=== PATIENT | male | born 1950 | race Caucasian/White ===

== ENCOUNTER 2018-09-27 09:49 | Day surgery (SDC) | payer MEDICARE, OTHER, SELFPAY ==
[2018-09-24 10:35] VITALS: BMI 27.1
[2018-09-27] VITALS (28 sets, daily range): BP systolic 118–159; BP diastolic 28–87; PULSE 67–90; RESP 14–21; TEMP 36.3–36.9; O2SAT 91–97; BMI 26.3
--- NOTE | 2018-09-27 13:00 | EKG12_ITS ---
Test Reason : POST PCI Blood Pressure : / mmHG Vent. Rate : 069 BPM Atrial Rate : 069 BPM P-R Int : 184 ms QRS Dur : 102 ms QT Int : 410 ms P-R-T Axes : 044 000 026 degrees QTc Int : 439 ms Normal sinus rhythm Normal ECG Confirmed by SOPHIE BROCK, REYES ([id number]), publishing editor ROBERTO SKY ([id number] on 09/30/2018 11:04:33 AM Referred By: Irving Harkins Confirmed By:REYES BARRIOS MD
[2018-09-27] MEDS: 0.9% Normal Saline 1,000 ML 150 ML IV (13:59)
--- NOTE | 2018-09-27 14:09 | CRPHASE1 ---
Patient Data/Charges Phase II Referral:: [facility] Start Phase II:: FOLLOWING OFFICE VISIT WITH FARM SPECIALIST Risk Factors/Lifestyle Smoking Status: Never smoker Hx Hypertension: Yes Hx Dyslipidemia: Yes Hx Obesity: No - BMI 27.4 Risk Factor for Sedentary Lifestyle: Moderate Risk Phase I Education Given On:: [place], Nutrition, Antiplatelet medication Issues Affecting Care:: None Knowledge of Condition:: Yes Learning Preferences: Verbal, Written Hospital Course Presenting Symptoms:: CHEST TIGHTNESS / ABNORMAL STRESS Pain Description: Tightness Medical/Surgical History [place]:: No Diabetes:: No Hypertension:: Yes Discharge/Home/Social Eval Discharge Disposition: Home
--- NOTE | 2018-09-27 14:13 | CRPHASE1_ITS ---
Patient Data/Charges Phase II Referral:: [facility] Start Phase II:: FOLLOWING OFFICE VISIT WITH RANGE EXAMINER Risk Factors/Lifestyle Smoking Status: Never smoker Hx Hypertension: Yes Hx Dyslipidemia: Yes Hx Obesity: No - BMI 27.4 Risk Factor for Sedentary Lifestyle: Moderate Risk Phase I Education Given On:: [place], Nutrition, Antiplatelet medication Issues Affecting Care:: None Knowledge of Condition:: Yes Learning Preferences: Verbal, Written Hospital Course Presenting Symptoms:: CHEST TIGHTNESS / ABNORMAL STRESS Pain Description: Tightness Medical/Surgical History [place]:: No Diabetes:: No Hypertension:: Yes Discharge/Home/Social Eval Discharge Disposition: Home
--- NOTE | 2018-09-27 14:16 | CRPH1.INSTRU ---
General Education CAD and cardiac anatomy and function:: Patient communicates acknowledgment Explanation of diagnoses and procedures:: Patient communicates acknowledgment Sign/Symptoms of WI:: Patient communicates acknowledgment Antiplatelet therapy: Patient communicates acknowledgment Proper use of NTG-SL: Patient communicates acknowledgment Emergency procedures and activation of EMS: Patient communicates acknowledgment Compliance of all prescribed medications: Patient communicates acknowledgment Smoking Patient Nicotine/Smoking Risk Factors Are:: Never smoked Dyslipidemia Patient Dyslipidemia Risk Factors Are:: Total Cholesterol, Triglycerides, HDL, LDL Recommendations Include:: Lipid profile not available, Reviewed NCEP/ATP guidelines, Therapeutic Lifestyle Change dietary guidelines Dyslipidemia Response Code:: Patient communicates acknowledgment Overweight/Obesity Patient Overweight/Obesity Risk Factors Are:: Overweight = 26-29 Recommendations Include:: Weight loss of 5-10%, Reduced calorie diet, Exercise 5-7 times/week Overweight/Obesity:: Patient communicates acknowledgment Hypertension Patient Hypertension Risk Factors Are:: No documented hx of HTN Recommendations Include:: Maintain BP <130/85, DASH dietary guidelines, Decrease/maintain normal body weight, Moderation of ETOH Hypertension:: Patient communicates acknowledgment Diabetes Patient Diabetes Risk Factors Are:: No documented hx of diabetes Metabolic Syndrome Recommendations Include:: Does not meet criteria Sedentary Patient Sedentary Risk Factors Are:: Lack of regular exercise Recommendations Include:: Aerobic exercise 5-7 times/week for 20-30 minutes continuously, Benefits of regular exercise, Discussed home walking program, Monitored Outpatient Cardiac Rehab Sedentary Response Code:: Patient communicates acknowledgment Stress Recommendations Include:: Identification of stressors, and assessment of coping skills, Stress management techniques Stress Response Code:: Patient communicates acknowledgment
--- NOTE | 2018-09-27 14:19 | CL.D_ITS ---
Patient Name: LUIS LOMELI Study Date: 09/27/2018 Performing: Irving Harkins MD Ht: 73 inches 185 cm : 1950 Wt: 205.3 lbs 93 kg Age: 68 Gender: male BSA: 2.17 PROCEDURE(S) PERFORMED WM79-EHN/COR/LV KS11-RNI W OR WO PTCA, SINGLE CORONARY ARTERY CLINICAL PROFILE AND INDICATIONS Heart Failure: None Stress/Imaging Stress Test w/SPECT MPI: Yes Result: Positive High RiskStress Test with SPECT MPI: Positive High Risk Angina Classification Anginal Classification w/in 2 Weeks: CCS II CAD Presentations: Stable angina. CONCLUSIONS Severe disease involving a large dominant right coronary artery with proximal 80% stenosis. Mild to moderate diffuse disease involving the left anterior descending artery and circumflex artery but with no high-grade stenosis. Preserved ejection fraction noted. RECOMMENDATIONS Referred for immediate PCI DESCRIPTION OF PROCEDURE The patient arrived to the procedure lab. The risks and benefits of the procedure as well as a full d escription of our services here and current unavailability of surgical backup were fully explained to the patient and/or their significant other prior to the catheterization. The Timeout was completed, verifying the correct patient and procedure. The patient's procedural site was prepped and draped in the usual fashion. Local anesthetic was given subcutaneously to right radial region with Lidocaine 2% . Using a modified Seldinger technique, arterial access was obtained via the right radial artery, a 6 Fr sheath was inserted. Left Coronary Artery selective angiography was performed in multiple views u sing a 5 Fr. 4.0 Orgas catheter. Right Coronary Artery selective angiography was then performed in mu ltiple views using a 5 Fr. 4.0 Orgas catheter. Left Ventriculography was performed in CHUN projection using a 5 Fr. Pigtail catheter. LV to AO pullback pressures were then recorded.The arterial sheath was pulled and a TR Band was applied for hemostasis CORONARY ANGIOGRAPHY DOMINANCE: Right Dominant LEFT HEART ASSESSMENT Left Ventricular Ejection Fraction: by LV Gram 60 % Normal LV wall motion Normal Left Ventricular systolic function LEFT MAIN: Angiographically normal LEFT ANTERIOR DECENDING ARTERY: PROX LAD: Mild luminal irregularities less than 30% MID LAD: Mild luminal irregularities less than 30% DISTAL LAD: Mild luminal irregularities CIRCUMFLEX ARTERY: MID CIRC: Moderate luminal irregularities up to 50% RIGHT CORONARY ARTERY: PROX RCA: 80 % Stenosis COMPLICATIONS No Complications PROCEDURE MEDICATIONS Fentanyl 50 mcg IV Versed 1 mg IV Versed 1 mg IV Fentanyl 25 mcg IV Versed 1 mg IV Oxygen: 2 L/min via nasal cannula Heparin 8000 unit(s) IV 09/27/2018 12:15:38 Heparin 4000 unit(s) IV 09/27/2018 12:22:17 Heparin 1000 unit(s) IV 09/27/2018 13:00:37 Nitro 200 mcg IC 09/27/2018 12:47:23 Plavix 300 mg PO 09/27/2018 13:03:41 SUMMARY OF HEMODYNAMIC DATA Time AIR REST ECG 10:18:40 AO 120/62 (86) SA 11:40:54 LV 114/0, 9 11:49:35 LV 126/1, 10 11:49:42 LV 126/0, 12 11:51:05 LVp 125/0, 12 11:51:09 AOp 127/61 (91) 11:51:14 RM AIR REST 13:17:06 Signed By Irving Harkins MD On 09/27/2018 14:18:46 Irving Harkins MD
--- NOTE | 2018-09-27 14:28 | CL.I_ITS ---
Patient Name: LUIS LOMELI Study Date: 09/27/2018 Performing: Abbe Vitale MD Ht: 73 inches 185 cm : 1950 Wt: 205.3 lbs 93 kg Age: 68 Gender: male BSA: 2.17 PROCEDURE(S) PERFORMED BT58-IDS W OR WO PTCA, SINGLE CORONARY ARTERY CLINICAL PROFILE AND CO-MORBIDITIES Heart Failure: None Stress/Imaging Stress Test w/SPECT MPI: Yes Result: Positive High Risk Stress Test with SPECT MPI : Positive High Risk Angina Classification Anginal Classification w/in 2 Weeks: CCS II CAD Presentations: Stable angina. CONCLUSIONS Successful PTCA/SEAN distal RCA using Resolute Integrity 3.5x12 mm RECOMMENDATIONS ASA Indefinitley Plavix for at least 12 months Follow up with Dr. Harkins INTERVENTION INFORMATION LESION SITE: RCA (Distal) Lesion Complexity: Non-High/Non-C Pre Stenosis: 70 % Pre intervention ZHENG flow: 3 PROCEDURE: Drug Eluting Stent with pre and post dilatation Post Stenosis: 0 % Post intervention ZHENG flow: 3 Lesion Devices: Cordis 6 Fr AL.75 100cm Guide Catheter Terumo .014 Runthrough Extra Floppy 180cm straight Petey Sci .035 180cm str. Magic wire Petey Sci EMERGE MR 3.00x12 BALLOON Medtronic Resolute RX SEAN 3.5x12 Petey Sci NC EMERGE MR 3.50x12 BALLOON LESION SITE: RCA (Mid) Lesion Complexity: High/C Pre Stenosis: 80 % Pre intervention ZHENG flow: 3 PROCEDURE: Drug Eluting Stent with pre and post dilatation Post Stenosis: 0 % Post intervention ZHENG flow: 3 Lesion Devices: Cordis 6 Fr AL.75 100cm Guide Catheter Terumo .014 Runthrough Extra Floppy 180cm straight Petey Sci .035 180cm str. Magic wire Petey Sci EMERGE MR 3.00x12 BALLOON Medtronic Resolute RX SEAN 3.5x26 Petey Sci NC EMERGE MR 3.50x12 BALLOON Petey Sci NC EMERGE MR 4.00x08 BALLOON COMPLICATIONS No Complications PROCEDURE MEDICATIONS Fentanyl 50 mcg IV Versed 1 mg IV Versed 1 mg IV Fentanyl 25 mcg IV Versed 1 mg IV Oxygen: 2 L/min via nasal cannula Heparin 8000 unit(s) IV 09/27/2018 12:15:38 Heparin 4000 unit(s) IV 09/27/2018 12:22:17 Heparin 1000 unit(s) IV 09/27/2018 13:00:37 Nitro 200 mcg IC 09/27/2018 12:47:23 Plavix 300 mg PO 09/27/2018 13:03:41 SUMMARY OF HEMODYNAMIC DATA Time AIR REST ECG 10:18:40 AO 120/62 (86) SA 11:40:54 LV 114/0, 9 11:49:35 LV 126/1, 10 11:49:42 LV 126/0, 12 11:51:05 LVp 125/0, 12 11:51:09 AOp 127/61 (91) 11:51:14 RM AIR REST 13:17:06 Signed By Abbe Vitale MD On 09/27/2018 14:27:59 Abbe Vitale MD
[2018-09-27 14:41] LABS: ACT Activated Clotting Time 246 sec (74-137)
[2018-09-27 14:41] LABS: ACT Activated Clotting Time 186 sec (74-137)
[2018-09-27] MEDS: Metoprolol Tartrate 25 MG Tablet 12.5 MG PO (21:17)
[2018-09-28] VITALS (13 sets, daily range): BP systolic 122–153; BP diastolic 59–80; PULSE 64–76; RESP 13–20; TEMP 36.6–37; O2SAT 92–99
[2018-09-28 04:18] LABS: Hematocrit 40.9 % (40-54); Mean Corp Hgb Conc 34.2 g/gl (32-36); Mean Corpuscular Hgb 30.6 pg (27.0-32.0); Mean Corpuscular Volume 89.5 fL (80-94); Mean Platelet Vol. 10.1 fl (6.2-12.0); Platelet Count 176 K/mm3 (150-450); RBC Distribution Width SD 42.4 fl (35.1-43.9); Red Blood Count 4.57 M/mm3 (4.6-6.2); White Blood Count 8.1 K/mm3 (4.4-11.0)
[2018-09-28 04:20] LABS: Scan Indicated on CBC? Y/N NO
[2018-09-28 04:38] LABS: Anion Gap 9 (5-15); BUN 15 mg/dL (7-18); BUN/Creat Ratio 16.5 RATIO (10-20); Chloride 108 mmol/L (98-107); Creatinine, Serum 0.91 mg/dL (0.70-1.30); EST Glomerular Filtration Rate 88 mL/min (>60); Est Glom Filt Rate - Afr Amer 106 mL/min (>60); Estimated Creatinine Clearance 85.36 ml/min; Glucose 101 mg/dL (74-106); Potassium 4.1 mmol/L (3.5-5.1); Sodium Level 142 mmol/L (136-145)
--- NOTE | 2018-09-28 06:35 | PN.CARD_ITS ---
Subjectve: Patient seen and evaluated. Appears to be doing well. Has no cardiac complaints. Objective: Vital Signs Temp Pulse Resp BP Pulse Ox 98 F 64 18 124/68 H 93 09/28/18 05:00 09/28/18 06:00 09/28/18 06:00 09/28/18 06:00 09/28/18 06:00 Oxygen Delivery Method Room Air Weight: 200 lb 9.93 oz Body Mass Index (BMI) 26.3 Intake and Output for Last 24 Hours 09/26/18 09/27/18 09/28/18 23:59 23:59 23:59 Intake Total 1391 / 1391 120 / 120 Output Total 2049 / 2049 275 / 275 Balance -659 / -659 -155 / -155 General: Awake, Alert, Oriented x 3 HEENT: PERRL, EOMI, Sclera Non Icteric Neck: Supple, Good ROM, No Lymph Node Enlargement Lungs: Clear to auscultation Cardiovascular: Regular Rhythm, Normal S1, Normal S2, No Murmurs, No Rubs, No Gallops Vascular: No Carotid Bruits, Normal Femoral Pulses, Normal Radial Pulses, Normal Dorsalis Pedal Pulse, Normal Posterior Tibial Pulses Abdomen: Bowel Sounds Present, Soft, Non Tender, No HSM, No Organomegaly Extremities: No Cyanosis, No Clubbing, No edema Skin: No Rashes Lymphatic: No Lymph Node Enlargement Neurological: No Focal Motor or Sensory Deficit Psych/Mental Status: Appropriate 09/28/18 04:10: WBC 8.1, RBC 4.57 L, Hgb 14.0, Hct 40.9, MCV 89.5, MCH 30.6, MCHC 34.2, RDW 13.0, RDW Differential 42.4, Plt Count 176, MPV 10.1 09/28/18 04:10: Sodium 142, Potassium 4.1, Chloride 108 H, Carbon Dioxide 25.0, Anion Gap 9, BUN 15, Creatinine 0.91, Est GFR (MDRD) Af Amer 106, Est GFR (MDRD) Non-Af 88, BUN/Creatinine Ratio 16.5, Glucose 101, Calcium 9.0 Rhythm: EKG: ECHO: Stress Test: Cardiac Cath: PCI: CT Surgery: Holter monitor: EPS: PPM: CXR: Chest CT Scan: Medical Necessity - Tobacco Use Smoking Status: Never smoker Tobacco Use: Non-smoker Assessment/Plan 1. Coronary artery disease * Patient is status post angioplasty and stenting of the proximal to mid right coronary artery with a 3.5 mm drug-eluting stent. Patient was pain-free overnight with no EKG changes. Hemoglobin and creatinine appears to be stable. * Patient's overall prognosis discussed and all questions answered appropriately. * Be discharged for outpatient follow-up with his primary instrumentation and controls designer. * * Thank you for allowing me to participate in the care of this patient. Please don't hesitate to call if any issues arise
--- NOTE | 2018-09-28 06:37 | DCINST_ITS ---
Discharge Diet: Low fat/ Low Cholesterol Discharge Activity: Return to Normal Activity Call your doctor if your incision/area has: Increased Pain/ Swelling, Increased Redness, Foul Smelling Discharge, Swelling at the incision site Call your doctor if you observe: Fever of 101 or Higher Additional Dressing/Incision Instructions:: Keep the dressing (bandage) on until the next morning. You may then shower, but do not take a tub bath for 5 days after your test. It is normal to have some tenderness and discomfort at the puncture site. Sometimes bruising also occurs. However, if pain, numbness, or coldness occurs below the puncture site (in your leg, toes, arms or fingers) call your doctor at once. You may have a small, marble sized knot at the puncture site. This is normal. Do not rub it. It will go away in 4-6 weeks. Bleeding can occur from the area where the puncture was done. Blood may spurt or drip from the site. If blood spurts, apply pressure right away to stop bleeding and call 911. Although rare, bleeding into the tissue (hematoma) can also occur. If this happens, a large, firm area goose egg under the skin will appear. If any of these occur, lie down as flat as you can and have someone apply firm pressure to the cath site with a gauze pad or a clean washcloth for 10-15 minutes. Call 911 or go to the Emergency Department. Allergies/Adverse Reactions: Allergies No Known Allergies Allergy (Verified 10/12/16 07:05) Medications to take at Discharge Simvastatin [Zocor] 20 mg PO QHS 10/12/16 clopidogrel 75 mg tablet 75 mg PO DAILY #30 tab 09/10/18 Amlodipine [Norvasc] 5 mg PO DAILY 09/24/18 Aspirin E.C. [Ecotrin] 81 mg PO DAILY@0800 09/24/18 Cholecalciferol (VIT D3) [Vitamin D] 1,000 unit PO DAILY 09/24/18 Hydrochlorothiazide [Hctz] 25 mg PO DAILY 09/24/18 Nitroglycerin [Nitrostat] 0.4 mg SUBLINGUAL Q5M PRN 09/24/18 Saw [place] 500 mg PO UD 09/24/18 Primary Care Physician: Mike Campos MD [Primary Care Provider] - Test Results: Test results from this visit will be discussed in further detail at your follow- up appointment, if applicable. Please Follow Up With: dr jacobson as previously scheduled. Proposed Discharge Date: 09/28/18 Cardiac Rehabilitation Info Cardiac Rehabilitation Program Information: Cardiac Rehabilitation is important for patients like you who are recovering from a heart problem. Cardiac rehabilitation programs are recognized as integral to the continued care of the patient with coronary heart disease. The cardiac rehabilitation program is designed to optimize a patient's physical, psychological, and social functioning. Health customer care representative work in cardiac rehabilitation programs and assist you with getting the treatments you need to get stronger and healthier - like exercise, healthy eating habits, and medications. Cardiac rehabilitation has been show to help people with heart problems live longer and have better life enjoyment than people who do not go to cardiac rehabilitation. Please contact the Cardiac Rehabilitation Program at [facility] at in two weeks if you have not heard from them.
[2018-09-28] MEDS: Aspirin E.C. 81 MG Tablet PO (09:01)
[2018-09-28] MEDS: Clopidogrel Bisulfate 75 MG Tablet PO (09:02)
[2018-09-28] MEDS: Metoprolol Tartrate 25 MG Tablet 12.5 MG PO (09:02)
--- NOTE | 2018-09-28 10:00 | EKG12_ITS ---
Test Reason : AM EKG Blood Pressure : / mmHG Vent. Rate : 065 BPM Atrial Rate : 065 BPM P-R Int : 192 ms QRS Dur : 094 ms QT Int : 408 ms P-R-T Axes : 050 000 058 degrees QTc Int : 424 ms Normal sinus rhythm Normal ECG Confirmed by SOPHIE BROCK, REYES ([id number]), editor city ROBERTO SKY ([id number]) on 09/30/2018 11:03:21 AM Referred By: Irving Harkins Confirmed By:REYES BARRIOS MD
== END 2018-09-28 09:45 | disposition home or self-care (01) ==
LOC: CLSP 09:50 → ICU 13:40
PROVIDERS: Internal Medicine Cardiovascular Disease; Family Provider Internal Medicine; PCP Internal Medicine; Referring Provider Internal Medicine Cardiovascular Disease; Visit Provider Internal Medicine Cardiovascular Disease
DX: R94.39 Abnormal result of other cardiovascular function study (principal); I25.10 Atherosclerotic heart disease of native coronary artery without angina pectoris; E03.8 Other specified hypothyroidism; E78.5 Hyperlipidemia, unspecified; E80.4 Gilbert syndrome; I10 Essential (primary) hypertension
CPT/HCPCS: 80048; 85027; 85347; 92928; 93005; 93458; 99152; 99153; J7030; J7040; Q9967; C1725; C1769; C1874; C1887; C1894; C9600

== ENCOUNTER 2018-10-14 03:29 | Emergency (ER) | payer MEDICARE, OTHER, SELFPAY ==
[2018-09-27 13:45] VITALS: BMI 26.3
[2018-10-14 03:31] VITALS: BP 133/66; PULSE 72; RESP 16; TEMP 36.4; O2SAT 96; BMI 26.9
--- NOTE | 2018-10-14 03:43 | EKG12_ITS ---
Test Reason : SYNCOPE Blood Pressure : / mmHG Vent. Rate : 074 BPM Atrial Rate : 074 BPM P-R Int : 200 ms QRS Dur : 098 ms QT Int : 428 ms P-R-T Axes : 037 -08 025 degrees QTc Int : 475 ms Normal sinus rhythm Nonspecific ST abnormality Abnormal ECG Confirmed by SOPHIE BROCK, REYES ([id number]), rewrite editor ROBERTO SKY ([id number]) on 10/19/2018 2:45:08 PM Referred By: JASPREET Confirmed By:REYES BARRIOS MD
--- NOTE | 2018-10-14 03:43 | RAD_ITS ---
STUDY: X-RAY CHEST REASON FOR EXAM: Male, 68 years old. Syncope. Cardiac stent placed 2 weeks ago. TECHNIQUE: AP portable chest. COMPARISON: None. FINDINGS: The lungs are clear and expanded. There is no demonstrated pleural abnormality. Normal size heart. Normal mediastinum and demi. Normal visualized pulmonary arteries. Normal visualized aortic arch and descending thoracic aorta. Normal visualized thoracic spine. Normal visualized ribs, clavicles, and shoulders. There is no demonstrated abnormality of the visualized soft tissue structures of the upper abdomen. RAD/Chest 1 View (Portable) IMPRESSION: No acute cardiopulmonary disease. Electronically Signed: Pee Paez MD at 4:24 EST , Service support ,
[2018-10-14 03:46] VITALS: BP 123/70; BP 139/78; BP 145/75; PULSE 69; PULSE 72; PULSE 80
[2018-10-14 03:51] LABS: Absolute Lymphocyte Count 1.96 X10^3/ul (0.83-4.51); Absolute Neutrophil Count 2.8 X10^3/uL (2.0-7.7); Basophil# 0.07 X10^3/uL; Basophil% 1.1 % (0-1); Eosinophil# 0.44 X10^3/uL; Eosinophils% 7.2 % (0-5); Hematocrit 42.6 % (40-54); Hemoglobin 14.5 g/dl (13.0-16.5); Lymphocyte # 1.96 X10^3/ul (4.0); Lymphocyte % 32.1 % (19-41); Mean Corpuscular Hgb 30.1 pg (27.0-32.0); Mean Corpuscular Volume 88.4 fL (80-94); Mean Platelet Vol. 9.6 fl (6.2-12.0); Monocyte# 0.79 X10^3/uL; Neutrophil # 2.84 X10^3/uL (2.7-7.7); Neutrophil % 46.6 % (47-70); Platelet Count 209 K/mm3 (150-450); RBC Distribution Width CV 12.7 % (11.6-14.6); RBC Distribution Width SD 40.4 fl (35.1-43.9); Red Blood Count 4.82 M/mm3 (4.6-6.2); White Blood Count 6.1 K/mm3 (4.4-11.0)
[2018-10-14 03:53] LABS: POSITIVE COUNT NO; POSITIVE DIFFERENTIAL NO; POSITIVE MORPHOLOGY NO
[2018-10-14 04:08] LABS: Anion Gap 7 (5-15); BUN 16 mg/dL (7-18); BUN/Creat Ratio 13.9 RATIO (10-20); Calcium,Total 9.1 mg/dL (8.5-10.1); Chloride 103 mmol/L (98-107); Creatinine, Serum 1.15 mg/dL (0.70-1.30); EST Glomerular Filtration Rate 67 mL/min (>60); Est Glom Filt Rate - Afr Amer 81 mL/min (>60); Estimated Creatinine Clearance 67.55 ml/min; Glucose 118 mg/dL (74-106); Potassium 3.3 mmol/L (3.5-5.1); Sodium Level 141 mmol/L (136-145)
[2018-10-14 04:34] VITALS: BP 127/70; PULSE 74; RESP 16; O2SAT 95
--- NOTE | 2018-10-14 04:53 | EKG12_ITS ---
Test Reason : REPEAT Blood Pressure : / mmHG Vent. Rate : 075 BPM Atrial Rate : 075 BPM P-R Int : 184 ms QRS Dur : 098 ms QT Int : 406 ms P-R-T Axes : 051 001 034 degrees QTc Int : 453 ms Normal sinus rhythm Nonspecific ST abnormality Abnormal ECG Confirmed by SOPHIE BROCK, REYES ([id number]), drug discovery informatics specialist ROBERTO SKY ([id number]) on 10/19/2018 2:45:17 PM Referred By: JASPREET Confirmed By:REYES BARRIOS MD
[2018-10-14 04:54] VITALS: BP 126/68; PULSE 71; RESP 18; O2SAT 92
[2018-10-14 05:02] LABS: Magnesium 2.4 mg/dL (1.6-2.6)
--- NOTE | 2018-10-14 05:05 | ED.VISSUMM ---
- ER Visit Summary Date of Service: 10/14/18 Chief Complaint: Syncope History of Present Illness: The patient is a [address] Jay Lopez and Dr. Campos. Patient reports that he had gotten up from bed and been standing for approximately 2 minutes urinating when he began feeling lightheaded. States that he was diaphoretic as well. He denies any chest pain, palpitations, shortness of breath. He tried to get back to his bed, but had a syncopal episode. He denies any injuries from this. No neck, back, shoulder, wrist, or hip pain. Patient had a heart catheterization September 27 and had 2 stents placed in his right coronary artery. He reports he has been doing well since that time. Review of systems: General: No fever, chills, cold sweats. Cardiovascular: No chest pain, palpitations. Respiratory: No cough, shortness of breath, dyspnea on exertion. Gastrointestinal: No abdominal pain, nausea, vomiting, diarrhea, melena, or hematochezia. Genitourinary: No dysuria, frequency, hematuria. Skin: No rash. Neuro: No headache, numbness, weakness. Physical Examination: Vitals: Stable. Afebrile. General: Well-nourished and well-developed. Head: Normocephalic atraumatic. Neck: Supple, no lymphadenopathy. No JVD. Nontender. Cardiovascular: Regular rate and rhythm. No murmurs. Respiratory: No respiratory distress. Clear to auscultation bilaterally. Abdominal: Soft, nontender, nondistended, normal bowel sounds. No guarding, rebound, or peritoneal signs. Back: Nontender. Extremities: Nontender, no edema. Skin: Normal color, no rash. Neurologic: Alert and oriented ?3. Cranial nerves II through XII are intact. Normal strength and sensation. Psych: Normal affect. Test Results: EKG is sinus at 74 with no acute changes. His QTC is 475. This is the only change from his EKG earlier this month. At that time his QTC was 424 and 439. CBC is remarkable for segmented neutrophils 47, monocytes 13, eosinophils of 7. Chem-7 is more for potassium 3.3 (slight hemolysis), glucose 118, creatinine 1.15. His creatinine on September 28 was 0.91. Troponin is negative. Chest x-ray is normal. Repeat EKG shows no acute changes. His QTC is 453. Repeat troponin is negative. Magnesium is 2.4. Emergency Department Course and Treatment: Patient had negative acetic vital signs. He was treated with a liter normal saline. He was given 40 mEq of potassium p.o. He is resting comfortably. Patient reports that he was placed on hydrochlorothiazide for lower extremity edema he got after being placed on Norvasc. Treatment Plan: Clinically I do not think the patient had a syncopal episode due to a dysrhythmia. He denies any palpitations or chest pain. He has had no ectopy in the 4 hours that has been observed in the emergency department. Patient was discussed with Dr. Gillespie. He will be discharged on K-Dur. Instructed to follow-up Dr. Gillespie as soon as possible. Speak with him about the possibility of changing from Norvasc and the hydrochlorothiazide that was added for peripheral edema to a single agent. Return to the emergency department for any worsening symptoms. Disposition: To home in improved and stable condition. Impression: 1. Syncope. 2. Mild hypokalemia on hydrochlorothiazide. 3. Prolonged QTC. This note was generated with [employer] ([employer])ation software. It may contain incorrect words, spelling, and punctuation that were not noted in review of the chart prior to signing ED Disposition - Plan for ED Patient: Chief Complaint: Syncope Instructions: ED Fainting Unkn Cause Prescriptions: Potassium Chloride [K-Dur] 40 meq PO DAILY #10 tablet Referrals: Jay Lopez MD [STAFF PHYSICIAN] - As soon as possible
[2018-10-14 06:06] VITALS: BP 139/75; PULSE 79; RESP 17; O2SAT 95
[2018-10-14 07:29] VITALS: BP 156/72; PULSE 61; RESP 15; O2SAT 99
== END 2018-10-14 07:30 | disposition home or self-care (01) ==
LOC: ED 04:07
PROVIDERS: Emergency Provider Emergency Medicine; Family Provider Internal Medicine; PCP Internal Medicine
DX: R55 Syncope and collapse (principal); E87.6 Hypokalemia; R60.0 Localized edema; I25.10 Atherosclerotic heart disease of native coronary artery without angina pectoris; I10 Essential (primary) hypertension; E78.00 Pure hypercholesterolemia, unspecified; Z95.5 Presence of coronary angioplasty implant and graft
CPT/HCPCS: 71045; 80048; 83735; 84484; 85025; 93005; 96360; 96361; 99285; J7030; J7040; A4216

== ENCOUNTER 2019-07-31 11:25 | Emergency (ER) | payer MEDICARE, OTHER, SELFPAY ==
[2019-07-31 11:26] VITALS: BP 154/72; PULSE 87; RESP 17; TEMP 36.2; O2SAT 96; BMI 24.6
--- NOTE | 2019-07-31 11:41 | CT_ITS ---
STUDY: CT BRAIN WITHOUT CONTRAST REASON FOR EXAM: Male, 69 years old. Dizziness. RADIATION DOSAGE (If Supplied By Facility): CTDIvol = ( 44.99 ) mGy, DLP = ( 779.24 ) mGycm TECHNIQUE: Transaxial CT imaging of the brain was performed without administration of intravenous contrast material. Individualized dose optimization techniques were used for this CT. COMPARISON: No relevant priors. FINDINGS: Normal soft tissue structures. Normal calvarium. The ventricles are slightly prominent likely due to central atrophy. Communicating hydrocephalus is less likely. Normal white matter tracts of the cerebral hemispheres. Normal basal ganglia and thalami. Normal brainstem. Normal cerebellum. There is no intracranial hemorrhage. There are no findings of an acute ischemic infarction. Normal visualized paranasal sinuses. CT/Brain/Head without Contrast IMPRESSION: No acute intracranial process. Electronically Signed: Urban Abbott MD at 12:51 EST Tel , Service support ,
--- NOTE | 2019-07-31 11:42 | EKG12_ITS ---
Test Reason : DIZZINESS Blood Pressure : / mmHG Vent. Rate : 081 BPM Atrial Rate : 081 BPM P-R Int : 186 ms QRS Dur : 098 ms QT Int : 384 ms P-R-T Axes : 049 -07 052 degrees QTc Int : 446 ms Normal sinus rhythm Normal ECG Confirmed by GIOVANNI BROCK, FRANCESCO ([id number]), makeup editor PETROS SAMUEL ([id number]) on 08/02/2019 2:25:50 PM Referred By: LUI Confirmed By:FRANCESCO DAVILA MD
[2019-07-31 12:03] LABS: Absolute Lymphocyte Count 1.58 X10^3/uL (0.83-4.51); Absolute Neutrophil Count 3.2 X10^3/uL (2.0-7.7); Basophil# 0.08 X10^3/uL; Basophil% 1.4 % (0-1); Eosinophil# 0.35 X10^3/uL; Eosinophils% 5.9 % (0-5); Hematocrit 39.6 % (40-54); Hemoglobin 13.4 g/dL (13.0-16.5); Lymphocyte # 1.58 X10^3/ul (4.0); Lymphocyte % 26.8 % (19-41); Mean Corp Hgb Conc 33.8 g/dL (32-36); Mean Corpuscular Hgb 30.9 pg (27.0-32.0); Mean Corpuscular Volume 91.5 fL (80-94); Mean Platelet Vol. 9.4 fl (6.2-12.0); Monocyte# 0.68 X10^3/uL; Monocyte% 11.5 % (0-10); NRBC Flagged by Analyzer 0 % (0-5); Neutrophil # 3.19 X10^3/uL (2.7-7.7); Neutrophil % 54.1 % (47-70); Platelet Count 185 K/mm3 (150-450); RBC Distribution Width CV 12.3 % (11.6-14.6); RBC Distribution Width SD 40.7 fl (35.1-43.9); Red Blood Count 4.33 M/mm3 (4.6-6.2); White Blood Count 5.9 K/mm3 (4.4-11.0)
[2019-07-31 12:21] LABS: Anion Gap 6 (5-15); BUN 16 mg/dL (7-18); BUN/Creat Ratio 15.5 RATIO (10-20); Calcium,Total 9.1 mg/dL (8.5-10.1); Chloride 105 mmol/L (98-107); Creatinine, Serum 1.03 mg/dL (0.70-1.30); EST Glomerular Filtration Rate 76 mL/min (>60); Est Glom Filt Rate - Afr Amer 92 mL/min (>60); Estimated Creatinine Clearance 74.34 ml/min; Glucose 107 mg/dL (74-106); Potassium 3.8 mmol/L (3.5-5.1); Sodium Level 139 mmol/L (136-145)
[2019-07-31] MEDS: 0.9% Normal Saline 1,000 ML 150 ML IV (12:39)
[2019-07-31 12:41] VITALS: BP 107/66; BP 112/70; BP 119/68; PULSE 77; PULSE 78
--- NOTE | 2019-07-31 13:09 | ED.DCSUM_ITS ---
- ER Visit Summary Date of Service: 07/31/19 Chief Complaint: [Dizziness] History of Present Illness: The patient is a 69 M [presents to the emergency department complaint of dizziness started this morning around 10:45 AM. Patient states that he was working out on the leg exercise machine after running on a treadmill for about a half an hour. When he got up off of the leg machine he felt lightheaded and off-balance. He denied any vertiginous symptoms. Patient denies any chest pain or shortness of breath. Patient also states that he is had a chronic cough and at times now when he coughs over the last several days has had a lot of pressure in the front of his head. Patient also had some pressure in the front of his head with bending over today. Patient has history of hypertension and high cholesterol. Patient has coronary artery disease with prior cardiac stents placed in 2019. Patient denies any fever or recent illness otherwise. He denies any exertional symptoms such as chest pain or shortness of breath with activity.] Patient denies any blood in the stool or black tarry stool. Physical Examination: [HEENT-PERRLA, EOMI. Cranial nerves II through XII grossly intact. TMs clear. Mucous membranes moist. No adenopathy. Cardiovascular-regular rate and rhythm without murmur or ectopy Lungs-clear to auscultation, chest wall stable without crepitus or subcu emphysema Abdomen-normoactive bowel sounds, soft, nontender, no rebound or rigidity, no peritoneal signs. Neuro paan-bysvls-ay-nose and plfk-oy-csoy testing within normal limits, negative Romberg, negative pronator drift, fundi benign Extremities-intact ?4, normal range of motion, normal pulses, atraumatic] Test Results: [Orthostatic vital signs were negative. EKG obtained on arrival shows sinus rhythm with a ventricular rate of 81 bpm with no acute ST segment changes. CBC with differential was normal. Chemistries normal. Troponin is less than 0.015. CT scan of the brain without contrast showed nothing acute.] Emergency Department Course and Treatment: [Patient was placed on a air sampling and monitoring while in the department. He received IV fluids normal saline. Patient ambulated in the department and was essentially asymptomatic.] Treatment Plan: [Patient advised to rest and drink plenty of fluids today. Patient to follow-up with primary care physician 3 to 5 days. Patient advised to return if chest pain, shortness of breath, tachycardia, syncope, bloody stools, or condition should worsen anyway.] Disposition: [Discharged home in stable condition.] Impression: [Dizziness-etiology uncertain-resolved] This note was generated with [employer] dictation software. It may contain incorrect words, spelling, and punctuation that were not noted in review of the chart prior to signing ED Disposition - Plan for ED Patient: Referrals: Mike Campos MD [Primary Care Provider] -
--- NOTE | 2019-07-31 13:12 | ED.DEP ---
ED Disposition - Plan for ED Patient: Instructions: DIZZINESS, Unk Cause Referrals: Mike Campos MD [Primary Care Provider] - 3-5 Days
[2019-07-31 13:15] VITALS: BP 118/72; PULSE 79; RESP 14; O2SAT 95
== END 2019-07-31 13:21 | disposition home or self-care (01) ==
LOC: ED 11:44
PROVIDERS: Emergency Provider Emergency Medicine; Family Provider Internal Medicine; PCP Internal Medicine
DX: R42 Dizziness and giddiness (principal); R05 Cough; I10 Essential (primary) hypertension; E78.00 Pure hypercholesterolemia, unspecified; I25.10 Atherosclerotic heart disease of native coronary artery without angina pectoris; Z95.5 Presence of coronary angioplasty implant and graft
CPT/HCPCS: 70450; 80048; 84484; 85025; 93005; 99285; J7030; A4216